=== PATIENT | male | born 2000 | race Caucasian/White ===

== ENCOUNTER 2022-11-27 17:13 | Emergency (ER) | payer BC ==
--- NOTE | 2022-11-27 18:14 | XR ---
EXAMINATION TYPE: XR shoulder complete RT DATE OF EXAM: 11/27/2022 6:02 PM INDICATION: Patient age:Male; 22 years old; Reason for study: tubing injury; COMPARISON: None TECHNIQUE: The right shoulder was examined in AP, internally rotated and scapular Y projections. . FINDINGS: No acute fracture. Anterior-inferior dislocation of the humeral head in relation to the glenoid fossa . The remaining portions of the visualized chest are unremarkable. IMPRESSION: Anterior inferior dislocation of the right humeral head.
--- NOTE | 2022-11-27 18:27 | ED ---
Upper Extremity HPI - General Source: patient, family, RN notes reviewed Mode of arrival: ambulatory Limitations: no limitations - History of Present Illness MD Complaint: Injury to:: right, shoulder <Eleanor Merritt - Last Filed: 11/27/22 18:25> <Dexter Nascimento - Last Filed: 11/27/22 19:58> - General Chief Complaint: Extremity Injury, Upper Stated Complaint: R Shoulder Out of place Time Seen by Provider: 11/27/22 18:20 - History of Present Illness Initial Comments: This is a 22-year-old male who presents to the emergency department for a right shoulder dislocation. States that he went tubing today, which is when it happened. 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 He has been unable to move the arm since the injury and states that it is extremely painful. (Eleanor Merritt) This is a 22-year-old male who states he hurt his right shoulder while he was tubing he got jerked really hard and then started having pain in her shoulder. Patient states he thinks he dislocated his shoulder once before but went back in on its own. Patient denies any neck or head pain patient denies any elbow or hand pain or wrist pain. Patient has no clavicle pain (Dexter Nascimento) - Related Data Allergies Allergy/AdvReac Type Severity Reaction Status Date / Time No Known Allergies Allergy Verified 11/27/22 17:50 Review of Systems ROS Other: All systems not noted in ROS Statement are negative. <Eleanor Merritt - Last Filed: 11/27/22 18:25> ROS Other: All systems not noted in ROS Statement are negative. <Dexter Nascimento - Last Filed: 11/27/22 19:58> ROS Statement: Those systems with pertinent positive or pertinent negative responses have been documented in the HPI. Past Medical History Past Medical History: No Reported History History of Any Multi-Drug Resistant Organisms: None Reported Past Surgical History: No Surgical Hx Reported, Orthopedic Surgery Past Psychological History: No Psychological Hx Reported Past Alcohol Use History: None Reported Past Drug Use History: None Reported <Eleanor Merritt - Last Filed: 11/27/22 18:25> General Exam Limitations: no limitations <Eleanor Merritt - Last Filed: 11/27/22 18:25> <Dexter Nascimento - Last Filed: 11/27/22 19:58> - General Exam Comments Initial Comments: Visual Physical Exam Vital signs reviewed General: Well-appearing, nontoxic, no acute distress. Head: Normocephalic, atraumatic Eyes: PERRLA, EOMI ENT: Airway patent Chest: Nonlabored breathing Skin: No visual rash, normal skin tone Neuro: Alert and oriented 3 Musculoskeletal: No gross abnormalities (Eleanor Merritt) GENERAL Patient is well-developed and well-nourished. Patient is in mild distress. EYES Patient's pupils are equal and round. Extraocular motion is intact SKIN Unremarkable NEURO The patient is alert and oriented 3 PYSCH Patient has normal interpersonal interactions. MUSCULOSKELETAL Right shoulder appears to have a dislocation patient is tender at the anterior lateral aspect of the shoulder (Dexter Nascimento) Course Vital Signs 11/27/22 11/27/22 11/27/22 17:51 18:39 19:08 Temperature 97.9 F 97.6 F Pulse Rate 74 72 71 Respiratory 16 20 16 Rate Blood Pressure 136/79 165/94 145/100 O2 Sat by Pulse 97 99 100 Oximetry 11/27/22 11/27/22 19:13 19:18 Temperature Pulse Rate 97 67 Respiratory 18 18 Rate Blood Pressure 142/97 142/86 O2 Sat by Pulse 100 100 Oximetry Procedures - Orthopedic Joint Reduction Joint #1 Consent Obtained: written consent Side: right Joint Reduction Location: shoulder Analgesia: procedural sedation Shoulder Technique Used (if applicable): traction/counter-traction Post-Reduction Neuro Exam: intact Post-Reduction Vascular Exam: intact Post Reduction X-Ray Obtained: Yes Post Reduction X-Ray Results: reduced Splint Applied: Yes Patient Tolerated Procedure: well - Orthopedic Splinting/Casting Injury #1 Side: right Upper Extremity Injury Location: shoulder Upper Extremity Immobilizer: sling/shoulder immobilizer - Procedural Sedation *Procedural Sedation Start Time: 19:08 *Procedural Sedation Stop Time: 19:38 *Indications: fracture/dislocation reduction *Previous Adverse Reaction to Anesthesia/Sedation?: No *ASA Class: II *Mallampati Airway Score: 2 Preparation: monitor tech applied, pulse oximeter, capnometry used, supplemental O2 applied IV Propofol Dose (mgs): 275 Complications: none Patient Tolerated Procedure: well <Dexter Nascimento - Last Filed: 11/27/22 19:58> Medical Decision Making <Dexter Nascimento - Last Filed: 11/27/22 19:58> - Medical Decision Making Was pt. sent in by a medical professional or institution (, ELI, CLERK STENOGRAPHER, urgent care, hospital, or halfway...) When possible be specific @ -No Did you speak to anyone other than the patient for history (EMS, parent, family, police, friend...)? What history was obtained from this source @ -No Did you review nursing and triage notes (agree or disagree)? Why? @ -I reviewed and agree with nursing and triage notes Were old charts reviewed (outside hosp., previous admission, EMS record, old EKG, old radiological studies, urgent care reports/EKG's, halfway records)? Report findings @ -No old charts were reviewed Differential Diagnosis (chest pain, altered mental status, abdominal pain women, abdominal pain men, vaginal bleeding, weakness, fever, dyspnea, syncope, headache, dizziness, GI bleed, back pain, seizure, CVA, palpatations, mental health, musculoskeletal)? @ -Differential Musculoskeletal Muscular strain, contusion, ligament sprain, fracture, arthritis, septic arthritis, bursitis, cellulitis, muscle spasm, nerve compression, DVT, arterial occlusion, herpes zoster, electrolyte abnormality, tumor.... This is not meant to be in all inclusive list EKG interpreted by me (3pts min.). @ -As above X-rays interpreted by me (1pt min.). @ -Shoulder x-ray shows a dislocated shoulder repeat x-ray after reduction shows good alignment at this point time. CT interpreted by me (1pt min.). @ -None done U/S interpreted by me (1pt. min.). @ -None done What testing was considered but not performed or refused? (CT, X-rays, U/S, labs )? Why? @ -None What meds were considered but not given or refused? Why? @ -None Did you discuss the management of the patient with other professionals (professionals i.e. ELI Ibrahim, CLERK STENOGRAPHER, lab, RT, psych nurse, social scientist, scrap sawyer, teacher, aboriginal home school liaison officer, family service caseworker)? Give summary @ -No Was smoking cessation discussed for >3mins.? @ -No Was critical care preformed (if so, how long)? @ -No Were there social determinants of health that impacted care today? How? (Homelessness, low income, unemployed, alcoholism, drug addiction, transportation, low edu. Level, literacy, decrease access to med. care, snf, rehab)? @ -No Was there de-escalation of care discussed even if they declined (Discuss DNR or withdrawal of care, Hospice)? DNR status @ -No What co-morbidities impacted this encounter? (DM, HTN, Smoking, COPD, CAD, Cancer, CVA, ARF, Chemo, Hep., AIDS, mental health diagnosis, sleep apnea, morbid obesity)? @ -None Was patient admitted / discharged? Hospital course, mention meds given and route, prescriptions, significant lab abnormalities, going to OR and other pertinent info. @ -Patient had a shoulder dislocation on the x-ray. I did conscious sedation on the patient given propofol and then I used traction countertraction but the shoulder back in place or repeat x-ray showed good placement of the shoulder patient was put in a shoulder immobilizer and he will be discharged to follow-up with orthopedics Undiagnosed new problem with uncertain prognosis? @ -No Drug Therapy requiring intensive monitoring for toxicity (Heparin, Nitro, Insulin, Cardizem)? @ -No Were any procedures done? @ -No Diagnosis/symptom? @ -Shoulder dislocation Acute, or Chronic, or Acute on Chronic? @ -Acute Uncomplicated (without systemic symptoms) or Complicated (systemic symptoms)? @ -Complicated Side effects of treatment? @ -No Exacerbation, Progression, or Severe Exacerbation? @ -No Poses a threat to life or bodily function? How? (Chest pain, [place], [place], pneumonia, PE, COPD, DKA, ARF, appy, cholecystitis, CVA, Diverticulitis, Homicidal, Suicidal, threat to staff... and all critical care pts) @ -No (Dexter Nascimento) Disposition <Eleanor Merritt - Last Filed: 11/27/22 18:25> Is patient prescribed a controlled substance at d/c from ED?: No Time of Disposition: 19:58 <Dexter Nascimento - Last Filed: 11/27/22 19:58> Clinical Impression: Dislocation of shoulder region Disposition: HOME SELF-CARE Condition: Good Instructions (If sedation given, give patient instructions): Shoulder Dislocation (ED) Referrals: Jayson Zavala DO [Doctor of Osteopathic Medicine] - 1-2 days
[2022-11-27] MEDS ORDERED: PROPOFOL 10 MG/ML 20 ML VIAL IV ONE ×4 (18:44→19:15)
--- NOTE | 2022-11-27 19:40 | XR ---
EXAMINATION TYPE: XR shoulder limited RT DATE OF EXAM: 11/27/2022 7:35 PM INDICATION: Patient age:Male; 22 years old; Reason for study: POST REDUCTION; COMPARISON: Right shoulder radiograph the same date TECHNIQUE: The right shoulder was examined in views. FINDINGS: No acute fracture. Interval reduction of right shoulder. Soft tissue edema. The visualized portions o f the chest are unremarkable. IMPRESSION: Post reduction changes of the right shoulder without evidence for acute fracture.
[2022-11-27 20:18] VITALS: BP 131/82; PULSE 81; RESP 7; TEMP 98
== END 2022-11-27 20:19 | disposition home or self-care (01) ==
LOC: EC 17:13
DX: S43.034A Inferior dislocation of right humerus, initial encounter (principal); X58.XXXA Exposure to other specified factors, initial encounter
CPT/HCPCS: 99152; 23650; 99153; 99283; 96374; 73020; 73030; J2704